=== PATIENT | male | born 1965 | race Caucasian/White ===

== ENCOUNTER 2020-07-11 08:47 | Outpatient (CLI) | payer BC, SELFPAY ==
--- NOTE | 2020-07-11 09:00 | XR_ITS ---
WS: [id number] XR KUB [id number] REASON FOR EXAM: stones FINDINGS: Compared to the previous examination of 10/04/2019, 3 additional 1 to 2 mm Renal calculi have developed adjacent to the previously demonstrated index calculus over the mid lowe r portion of the right kidney. No other urinary tract calculi are identified. XR/XR KUB [id number] IMPRESSION: Change in the right renal calculi as above.
== END 2020-07-11 08:48 | disposition home or self-care (01) ==
LOC: RAD 08:50
PROVIDERS: PCP Physician Assistant Medical; Visit Provider Urology
DX: N20.2 Calculus of kidney with calculus of ureter (principal)
CPT/HCPCS: 74018

== ENCOUNTER 2020-07-13 08:40 | Outpatient (CLI) | payer BC, SELFPAY ==
--- NOTE | 2020-07-13 08:45 | XR_ITS ---
WS: [id number] XR KUB [id number] REASON FOR EXAM: STONES FINDINGS: Examination is unchanged compared to abdomen exam of 07/11/2020. Collection of small renal calculi ov erlying the mid to lower right kidney. Maximum dimension of the largest calculus is 5 mm. On today's examination there are 2 left renal calculi which in retrospect are present but obscured by overlying fecal material in the colon on the exam of 07/11/2020. CT scan of the abdomen and pelvis on 06/07/2019 shows 2 calculi that correlate with the current findings. XR/XR KUB [id number] IMPRESSION: Right renal calculi unchanged. Left renal calculi unchanged.
== END 2020-07-13 08:41 | disposition home or self-care (01) ==
LOC: RAD 08:42
PROVIDERS: PCP Physician Assistant Medical; Visit Provider Urology
DX: N20.0 Calculus of kidney (principal)
CPT/HCPCS: 74018; 81001

== ENCOUNTER 2020-08-06 19:32 | Observation (INO) | payer BC, SELFPAY ==
[2020-08-06] VITALS (8 sets, daily range): BP systolic 168; BP diastolic 106; PULSE 98–105; RESP 14–30; TEMP 36.6; O2SAT 95–100; BMI 31.1
--- NOTE | 2020-08-06 20:32 | XRR_ITS ---
PROCEDURE INFORMATION: Exam: XR Abdomen, 1 View Exam date and time: 08/06/2020 8:56 PM Age: 54 years old Clinical indication: Condition or disease; Kidney or ureter condition; Calculus (stone) in kidney; Prior surgery; Surgery type: Splenectomy; Patient HX: Left flank pain, n/v; Additional info: Left kidney stone TECHNIQUE: Imaging protocol: XR of the abdomen. Views: Frontal supine view of the abdomen. 1 View. COMPARISON: MI XR KUB [id number] 07/13/2020 8:48 AM FINDINGS: A 0.5 cm density is seen at L2-L3 level on the left side in the line of the left ureter. A tiny density seen in the lower pole of the right kidney. Gastrointestinal tract: Normal. No bowel dilation. Bones/joints: Unremarkable. XR/XR KUB [id number] IMPRESSION: Probable left proximal ureteric stone. A nonobstructing stone is seen in the lower pole of the right kidney.
--- NOTE | 2020-08-06 20:33 | W.ED.GENADLT ---
Documented by User: MAGAN Hollins 08/07/20 01:58 HPI - General Adult General: Chief complaint: General Medical Stated complaint: FLANK/BACK PAIN Time Seen by Provider: 08/06/20 20:17 History of Present Illness: HPI narrative: 54-year-old male patient presents to the emergency department with sudden onset of left flank pain that started around 4 PM today. He reports history of kidney stone but on the right side. Previous stone experienced on the right side the beginning of July, urologist is Dr. Pza. He denies dysuria or difficulty with urination. He reports chills and diaphoresis with nausea vomiting. He denies shortness of breath or chest pain. He reports pain starts in the left flank and radiates around the left front abdomen. Location: abdomen (left) Radiation: abdomen and flank Severity: severe and similar to prior episodes Severity scale (1-10): 8 Quality: stabbing Pain Consistency: intermittent and colicky Relieving factors: none Exacerbating factors: none Associated symptoms: Reports diaphoresis, nausea and vomiting; Deny chest pain, dyspnea, headache(s), rash or palpitations Treatments prior to arrival: none Review of Systems General: Reports: 10 or more systems reviewed and unremarkable except in HPI and below Const: Reports: diaphoresis Eyes: Denies: blurry vision or eye redness ENMT: Denies: throat pain, dental pain or disequilibrium Card: Denies: chest pain, palpitations or irregular heart rhythm Resp: Denies: dyspnea, productive cough, non-productive cough or wheezing GI: Reports: abdominal pain, nausea and vomiting; Denies: coffee ground emesis, heartburn, diarrhea or GI cramping : Denies: dysuria Musc: Denies: neck pain or back pain Skin/Breast: Denies: rash or pruritus Neuro: Denies: headache(s), weakness in extremities or behavioral changes Psych: Denies: anxiety or depression Killian/Lymph: Denies: easy bruising PFSH ED PFSH: Medical History (Updated 08/06/20 @ 23:54 by MAGAN Hollins) Renal and ureteric calculus Surgical History H/O splenectomy Family History Father , at age 74 COPD (chronic obstructive pulmonary disease) Mother Diabetes Hyperlipidemia Social History Smoking and tobacco status: never smoked Alcohol intake: never Marital status: Current occupational status: employed History of recent travel: No Physical Exam Const: COMMON NORMALS: patient oriented x3, healthy appearing and alert GENERAL APPEARANCE: cooperative, well kempt, in distress (pain), anxious, diaphoretic, well hydrated and other (in pain, uncomfortable) ORIENTATION/CONSCIOUSNESS: Yes awake, Yes oriented to person, Yes oriented to place and Yes oriented to time HENMT: COMMON NORMALS: normocephalic, Normal external nose present and moist oral mucous membranes HEAD & SCALP: normocephalic NOSE: Normal external nose present Eye: COMMON NORMALS: Equal, round and reactive pupils present and EOMs intact bilaterally GENERAL EYE: appearance normal, both eyes and all related structures PUPIL: Yes Equal, round and reactive pupils present Neck/C-Spine: COMMON NORMALS: full ROM and no lymphadenopathy GENERAL: Yes normal visual inspection and Yes trachea midline CERVICAL SPINE: Yes cervical ROM normal Lymph: LYMPHATIC: no lymphadenopathy noted Chest: COMMONS NORMALS: normal inspection of the chest Resp: COMMON NORMALS: normal respiratory effort and clear to auscultation bilaterally AUSCULTATION: clear to auscultation bilaterally Cardio: COMMON NORMALS: regular rhythm, S1 normal heart sound present, S2 normal heart sound present and Peripheral pulses 2+ throughout RHYTHM: regular rhythm HEART SOUNDS: S1 normal heart sound present and S2 normal heart sound present PERIPHERAL PULSES: Peripheral pulses 2+ throughout GI: COMMON NORMALS: Normal to inspection, nondistended, normoactive bowel sounds present, Soft to palpation and non-tender INSPECTION: Yes normal to inspection and Yes central obesity PALPATION: Yes Soft to palpation : COMMON NORMALS: Yes no CVA tenderness BLADDER/KIDNEY EXAM: Yes no CVA tenderness Back/Pelvis: COMMON NORMALS: no CVA tenderness and thoracic and lumbar spine normal to inspection Extremity: COMMON NORMALS: normal to inspection and capillary refill normal Neuro: COMMON NORMALS: patient oriented x3 and no focal motor deficits SENSORIUM/ORIENTATION: Yes alert, Yes oriented to person, Yes oriented to place and Yes oriented to time Psych: COMMON NORMALS: mental status grossly normal, Normal thought process present and cooperative APPEARANCE: Yes well kempt ACTIVITY/MOTOR BEHAVIOR: Yes appropriate eye contact THOUGHT PROCESS: Normal thought process present Skin: COMMON NORMALS: no rashes or lesions noted and turgor normal GENERAL SKIN EXAM: no rashes or lesions noted and turgor normal Course ED course: 54 year old male presents to the ED with left 5 mm calculus in the proximal left ureter, mild-moderate hydronephrosis with associated inflammatory stranding. Patient received 12 mg of morphine and 1.5 mg of Dilaudid for pain control. Supplemental oxygen applied due to hypoxia, O2 saturations 87% on room air. Pain was controlled, urinalysis with too numerous to count red blood cells and 20-[address] Paz contacted agrees to admit for inpatient services due to pain control. Patient has previous history of renal calculus with lithotripsy procedure. Vital Signs: Vital signs: Vital Signs Temperature 97.6 F 08/07/20 00:34 Pulse Rate 114 H 08/07/20 00:34 Respiratory Rate 22 H 08/07/20 01:27 Blood Pressure 161/97 08/07/20 00:34 Pulse Oximetry 94 08/07/20 00:34 [facility] - General Adult Lab Data: Labs: Lab Results 08/06/20 08/06/20 08/06/20 Range/Units 21:00 21:00 21:00 WBC 17.9 H (4.0-10.0) 10^3/ uL RBC 5.38 H (4.1-5.3) 10^6/u L Hgb 15.6 (11.7-16.6) g/dL Hct 47.1 (42.0-52.0) % MCV 87.5 (80-94) fL MCH 29.0 (28.0-34.0) pg MCHC 33.1 (30.0-36.0) g/dL RDW 14.9 (12.1-15.1) % Plt Count 467 H (130-400) 10^3/c mm MPV 9.6 (7.4-10.4) fL Neut % (Auto) 83.9 % Lymph % (Auto) 11.6 % Mathews % (Auto) 3.4 % Eos % (Auto) 0.0 % Baso % (Auto) 0.6 % Neut # (Auto) 15.06 H (1.8-7.7) 10^3/u L Lymph # (Auto) 2.1 (0.8-4.8) 10^3/u L Mathews # (Auto) 0.6 (0.2-0.9) 10^3/u L Eos # (Auto) 0.0 (0.0-0.8) 10^3/u L Baso # (Auto) 0.1 (0.0-0.1) 10^3/u L Nucleated RBC % (a uto) 0 % Nucleated RBCs # 0.0 /100WBC D-Dimer 0.29 (0-0.59) ug/mIFE U Sodium 142 (136-145) mmol/L Potassium 3.8 (3.5-5.1) mmol/L Chloride 103 (98-107) mmol/L Carbon Dioxide 21 L (22-29) mmol/L Anion Gap 21.8 H (5-19) BUN 22 H (6-20) mg/dL Creatinine 1.1 (0.7-1.2) mg/dL GFR Calculation 70.3 L (90-130) mL/min Glucose 191 H (65-115) mg/dL Calculated Osmolal ity 302 H (285-295) mOsm/k g Calcium 10.2 (8.5-10.5) mg/dL Total Bilirubin 0.6 (0.15-1.2) mg/dL AST 23 (0-40) U/L ALT 27 (0-41) U/L Alkaline Phosphata se 80 (40-130) IU/L Total Protein 8.0 (6.6-8.7) g/dL Albumin 4.7 (3.5-5.2) g/dL Globulin 3.3 (1.3-4.6) g/dL Urine Color (Yellow) Urine Appearance (CLEAR) Urine pH (5-7) Ur Specific Gravit y (1.005-1.030) Urine Protein (Negative) Urine Glucose (UA) (Normal) Urine Ketones (Negative) Urine Blood (Negative) Urine Nitrate (Negative) Urine Bilirubin (Negative) Urine Urobilinogen (Negative) mg/dL Ur Leukocyte Akosua ase (Negative) Urine RBC (0-2) /hpf Urine WBC (0-5) /hpf Ur Squamous Epith Cells (0-5) /hpf Amorphous Sediment Urine Bacteria (NONE) /hpf 08/06/20 Range/Units 22:20 WBC (4.0-10.0) 10^3/ uL RBC (4.1-5.3) 10^6/u L Hgb (11.7-16.6) g/dL Hct (42.0-52.0) % MCV (80-94) fL MCH (28.0-34.0) pg MCHC (30.0-36.0) g/dL RDW (12.1-15.1) % Plt Count (130-400) 10^3/c mm MPV (7.4-10.4) fL Neut % (Auto) % Lymph % (Auto) % Mathews % (Auto) % Eos % (Auto) % Baso % (Auto) % Neut # (Auto) (1.8-7.7) 10^3/u L Lymph # (Auto) (0.8-4.8) 10^3/u L Mathews # (Auto) (0.2-0.9) 10^3/u L Eos # (Auto) (0.0-0.8) 10^3/u L Baso # (Auto) (0.0-0.1) 10^3/u L Nucleated RBC % (a uto) % Nucleated RBCs # /100WBC D-Dimer (0-0.59) ug/mIFE U Sodium (136-145) mmol/L Potassium (3.5-5.1) mmol/L Chloride (98-107) mmol/L Carbon Dioxide (22-29) mmol/L Anion Gap (5-19) BUN (6-20) mg/dL Creatinine (0.7-1.2) mg/dL GFR Calculation (90-130) mL/min Glucose (65-115) mg/dL Calculated Osmolal ity (285-295) mOsm/k g Calcium (8.5-10.5) mg/dL Total Bilirubin (0.15-1.2) mg/dL AST (0-40) U/L ALT (0-41) U/L Alkaline Phosphata se (40-130) IU/L Total Protein (6.6-8.7) g/dL Albumin (3.5-5.2) g/dL Globulin (1.3-4.6) g/dL Urine Color Rosario (Yellow) Urine Appearance Sl cloudy A (CLEAR) Urine pH 5 (5-7) Ur Specific Gravit y 1.025 (1.005-1.030) Urine Protein 1+ H (Negative) Urine Glucose (UA) 1+ (Normal) Urine Ketones 2+ H (Negative) Urine Blood 3+ H (Negative) Urine Nitrate Negative (Negative) Urine Bilirubin Neg (Negative) Urine Urobilinogen Norm (Negative) mg/dL Ur Leukocyte Akosua ase Trace H (Negative) Urine RBC Too numerous to c nt H (0-2) /hpf Urine WBC 25-40 H (0-5) /hpf Ur Squamous Epith Cells 0-4 H (0-5) /hpf Amorphous Sediment Not Reportable Urine Bacteria 2+ H (NONE) /hpf Imaging Data^: CT Abd/Pel: Radiologist's impression: [place] [address] CT Scan Report Signed Patient: Sylvester El Unit #: [id number] : 1965 Age/Sex: 54 / M ADM Date: 08/06/20 Loc: ER Room/Bed: Attending Dr: Ordering Provider/Ordering MD: Gretchen Siddiqui Date of Service: 08/06/20 Procedure(s): CT kidney stone 22786 Accession Number(s): [id number] Report Number: [id number] PROCEDURE INFORMATION: Exam: CT Abdomen And Pelvis Without Contrast Exam date and time: 08/06/2020 8:57 PM Age: 54 years old Clinical indication: Abdominal pain; Left; Prior surgery; Surgery date: 6+ months; Surgery type: Spleen; Patient HX: New onset L flank pain w HX of stones; Additional info: Kidney stone TECHNIQUE: Imaging protocol: Computed tomography of the abdomen and pelvis without contrast. Radiation optimization: All CT scans at this facility use at least one of these dose optimization techniques: automated exposure control; mA and/or kV adjustment per patient size (includes targeted exams where dose is matched to clinical indication); or iterative reconstruction. COMPARISON: CT abdomen pelvis w con* [id number] 06/07/2019 3:46 AM RADIATION DOSE METRICS: Total DLP (mGy-cm): 1567.52 FINDINGS: Mediastinal space: Small hiatal hernia. Liver: Normal. No mass. Gallbladder and bile ducts: Normal. No calcified stones. No ductal dilation. Pancreas: Normal. No ductal dilation. Spleen: Status post splenectomy. Small residual splenules are present in the left upper quadrant. Adrenal glands: Normal. No mass. Kidneys and ureters: There are bilateral nonobstructing renal calculi. There is a 5 mm x 5 mm calculus in the proximal left ureter.Mild to moderate hydronephrosis/hydroureter and associated inflammatory stranding. Stomach and bowel: Unremarkable. No obstruction. No mucosal thickening. Appendix: Appendix is normal in thickness with no periappendiceal inflammatory changes seen. A tiny hyperdensity is present in the appendix. Intraperitoneal space: Unremarkable. No free air. No significant fluid collection. Vasculature: Unremarkable. No abdominal aortic aneurysm. Lymph nodes: Unremarkable. No enlarged lymph nodes. Urinary bladder: Unremarkable as visualized. Reproductive: Unremarkable as visualized. Bones/joints: Unremarkable. No acute fracture. Soft tissues: Unremarkable. CT/CT kidney stone [id number] IMPRESSION: There is a 5 mm calculus in the proximal left ureter with obstructive changes as described above. Discharge Plan Discharge Patient Disposition: Admitted As Inpatient Admit Provider: Alfredo Paz Clinical Impression: Renal and ureteric calculus Condition: Stable Referrals: Mati Bradley [Primary Care Provider] - Discharge Date/Time: 08/07/20 00:30 Coding Level of Care Code ED Dolly Pusher for Chg Fwd Exam Comprehensive Documented by User: León Recinos DO 08/07/20 00:38 HPI - General Adult General: Chief complaint: General Medical Stated complaint: FLANK/BACK PAIN Time Seen by Provider: 08/06/20 20:17 PFSH ED PFSH: Medical History (Updated 08/06/20 @ 23:54 by MAGAN Hollins) Renal and ureteric calculus Surgical History H/O splenectomy Family History Father , at age 74 COPD (chronic obstructive pulmonary disease) Mother Diabetes Hyperlipidemia Social History Smoking and tobacco status: never smoked Alcohol intake: never Marital status: Current occupational status: employed History of recent travel: No Course Vital Signs: Vital signs: Vital Signs Temperature 97.6 F 08/07/20 00:34 Pulse Rate 114 H 08/07/20 00:34 Respiratory Rate 22 H 08/07/20 01:27 Blood Pressure 161/97 08/07/20 00:34 Pulse Oximetry 94 08/07/20 00:34 MDM - General Adult MDM Narrative: Medical decision making narrative: 54-year-old male patient seen by KAYE Oshea. I agree with her history, evaluation, and management. This patient has intractable pain due to 5 mm left-sided ureterolithiasis with obstruction. I spoke with Dr. Paz. Patient will be observed. He was given 1 g of Rocephin in the ER for potential infection, although urinalysis may be somewhat contaminated. Lab Data: Labs: Lab Results 08/06/20 08/06/20 08/06/20 Range/Units 21:00 21:00 21:00 WBC 17.9 H (4.0-10.0) 10^3/ uL RBC 5.38 H (4.1-5.3) 10^6/u L Hgb 15.6 (11.7-16.6) g/dL Hct 47.1 (42.0-52.0) % MCV 87.5 (80-94) fL MCH 29.0 (28.0-34.0) pg MCHC 33.1 (30.0-36.0) g/dL RDW 14.9 (12.1-15.1) % Plt Count 467 H (130-400) 10^3/c mm MPV 9.6 (7.4-10.4) fL Neut % (Auto) 83.9 % Lymph % (Auto) 11.6 % Mathews % (Auto) 3.4 % Eos % (Auto) 0.0 % Baso % (Auto) 0.6 % Neut # (Auto) 15.06 H (1.8-7.7) 10^3/u L Lymph # (Auto) 2.1 (0.8-4.8) 10^3/u L Mathews # (Auto) 0.6 (0.2-0.9) 10^3/u L Eos # (Auto) 0.0 (0.0-0.8) 10^3/u L Baso # (Auto) 0.1 (0.0-0.1) 10^3/u L Nucleated RBC % (a uto) 0 % Nucleated RBCs # 0.0 /100WBC D-Dimer 0.29 (0-0.59) ug/mIFE U Sodium 142 (136-145) mmol/L Potassium 3.8 (3.5-5.1) mmol/L Chloride 103 (98-107) mmol/L Carbon Dioxide 21 L (22-29) mmol/L Anion Gap 21.8 H (5-19) BUN 22 H (6-20) mg/dL Creatinine 1.1 (0.7-1.2) mg/dL GFR Calculation 70.3 L (90-130) mL/min Glucose 191 H (65-115) mg/dL Calculated Osmolal ity 302 H (285-295) mOsm/k g Calcium 10.2 (8.5-10.5) mg/dL Total Bilirubin 0.6 (0.15-1.2) mg/dL AST 23 (0-40) U/L ALT 27 (0-41) U/L Alkaline Phosphata se 80 (40-130) IU/L Total Protein 8.0 (6.6-8.7) g/dL Albumin 4.7 (3.5-5.2) g/dL Globulin 3.3 (1.3-4.6) g/dL Urine Color (Yellow) Urine Appearance (CLEAR) Urine pH (5-7) Ur Specific Gravit y (1.005-1.030) Urine Protein (Negative) Urine Glucose (UA) (Normal) Urine Ketones (Negative) Urine Blood (Negative) Urine Nitrate (Negative) Urine Bilirubin (Negative) Urine Urobilinogen (Negative) mg/dL Ur Leukocyte Akosua ase (Negative) Urine RBC (0-2) /hpf Urine WBC (0-5) /hpf Ur Squamous Epith Cells (0-5) /hpf Amorphous Sediment Urine Bacteria (NONE) /hpf 08/06/20 Range/Units 22:20 WBC (4.0-10.0) 10^3/ uL RBC (4.1-5.3) 10^6/u L Hgb (11.7-16.6) g/dL Hct (42.0-52.0) % MCV (80-94) fL MCH (28.0-34.0) pg MCHC (30.0-36.0) g/dL RDW (12.1-15.1) % Plt Count (130-400) 10^3/c mm MPV (7.4-10.4) fL Neut % (Auto) % Lymph % (Auto) % Mathews % (Auto) % Eos % (Auto) % Baso % (Auto) % Neut # (Auto) (1.8-7.7) 10^3/u L Lymph # (Auto) (0.8-4.8) 10^3/u L Mathews # (Auto) (0.2-0.9) 10^3/u L Eos # (Auto) (0.0-0.8) 10^3/u L Baso # (Auto) (0.0-0.1) 10^3/u L Nucleated RBC % (a uto) % Nucleated RBCs # /100WBC D-Dimer (0-0.59) ug/mIFE U Sodium (136-145) mmol/L Potassium (3.5-5.1) mmol/L Chloride (98-107) mmol/L Carbon Dioxide (22-29) mmol/L Anion Gap (5-19) BUN (6-20) mg/dL Creatinine (0.7-1.2) mg/dL GFR Calculation (90-130) mL/min Glucose (65-115) mg/dL Calculated Osmolal ity (285-295) mOsm/k g Calcium (8.5-10.5) mg/dL Total Bilirubin (0.15-1.2) mg/dL AST (0-40) U/L ALT (0-41) U/L Alkaline Phosphata se (40-130) IU/L Total Protein (6.6-8.7) g/dL Albumin (3.5-5.2) g/dL Globulin (1.3-4.6) g/dL Urine Color Rosario (Yellow) Urine Appearance Sl cloudy A (CLEAR) Urine pH 5 (5-7) Ur Specific Gravit y 1.025 (1.005-1.030) Urine Protein 1+ H (Negative) Urine Glucose (UA) 1+ (Normal) Urine Ketones 2+ H (Negative) Urine Blood 3+ H (Negative) Urine Nitrate Negative (Negative) Urine Bilirubin Neg (Negative) Urine Urobilinogen Norm (Negative) mg/dL Ur Leukocyte Akosua ase Trace H (Negative) Urine RBC Too numerous to c nt H (0-2) /hpf Urine WBC 25-40 H (0-5) /hpf Ur Squamous Epith Cells 0-4 H (0-5) /hpf Amorphous Sediment Not Reportable Urine Bacteria 2+ H (NONE) /hpf Discharge Plan Discharge Patient Disposition: Admitted As Inpatient Admit Provider: Alfredo Paz Clinical Impression: Renal and ureteric calculus Condition: Stable Referrals: Mati Bradley [Primary Care Provider] - Discharge Date/Time: 08/07/20 00:30 Coding Level of Care Code ED Dolly Pusher for Chg Fwd Exam Comprehensive
[2020-08-06] MEDS: ondansetron 2 mg/ML SDV 2 mL 4 MG IVP (20:53)
[2020-08-06] MEDS: morphine 4 mg/mL SDV 1 mL IVP ×3 (20:53→22:23)
[2020-08-06] MEDS: sodium chloride 0.9% 500 ML 999 ML IV (20:57)
[2020-08-06 21:13] LABS: Basophils # 0.1 10^3/uL (0.0-0.1); Basophils % 0.6 %; Hematocrit 47.1 % (42.0-52.0); Hemoglobin 15.6 g/dL (11.7-16.6); Lymphocytes # 2.1 10^3/uL (0.8-4.8); Lymphocytes % 11.6 %; Mean Corpuscular HGB Conc 33.1 g/dL (30.0-36.0); Mean Corpuscular Volume 87.5 fL (80-94); Mean Platelet Volume 9.6 fL (7.4-10.4); Monocytes # 0.6 10^3/uL (0.2-0.9); Monocytes % 3.4 %; Neutrophils # 15.06 10^3/uL (1.8-7.7); Neutrophils % 83.9 %; Nucleated Red Blood Cells % 0 %; Platelet Count 467 10^3/cmm (130-400); Red Blood Count 5.38 10^6/uL (4.1-5.3); Red Cell Distribution Width 14.9 % (12.1-15.1); White Blood Count 17.9 10^3/uL (4.0-10.0)
[2020-08-06] MEDS: HYDROmorphone 1 mg/mL INJ 1 mL IVP (21:29)
[2020-08-06 21:35] LABS: Alanine Aminotransferase 27 U/L (0-41); Albumin Level 4.7 g/dL (3.5-5.2); Alkaline Phosphatase 80 IU/L (40-130); Anion Gap 21.8 (5-19); Aspartate Amino Transferase 23 U/L (0-40); Blood Urea Nitrogen 22 mg/dL (6-20); Calcium 10.2 mg/dL (8.5-10.5); Carbon Dioxide 21 mmol/L (22-29); Chloride 103 mmol/L (98-107); Globulin 3.3 g/dL (1.3-4.6); Glomerular Filtration Rate 70.3 mL/min (90-130); Glucose 191 mg/dL (65-115); Osmolality Calculated 302 mOsm/kg (285-295); Potassium 3.8 mmol/L (3.5-5.1); Sodium 142 mmol/L (136-145); Total Bilirubin 0.6 mg/dL (0.15-1.2)
[2020-08-06 21:42] LABS: D Dimer 0.29 ug/mIFEU (0-0.59)
[2020-08-06 22:42] LABS: Add Urine Microscopic? YES; Bilirubin Urine Neg (Negative); Blood Urine 3+ (Negative); Glucose Urine UA 1+ (Normal); Ketones Urine 2+ (Negative); Leukocyte Esterase Urine Trace (Negative); Nitrate Urine Negative (Negative); Protein Urine 1+ (Negative); Specific Gravity, Urine 1.025 (1.005-1.030); Urine Color Amber (Yellow); Urobilinogen Urine Norm (Negative); pH Urine 5 (5-7)
[2020-08-06] MEDS: HYDROmorphone 1 mg/mL INJ 1 mL 0.5 MG IVP (22:42)
[2020-08-06 22:51] LABS: RBC Urine TOO NUMEROUS TO CNT /hpf (0-2); Squamous Epithelial Cell Urine 0-4 /hpf (0-5); WBC Urine 25-40 /hpf (0-5)
[2020-08-06 22:52] LABS: Add Urine Culture? Yes; Bacteria Urine 2+ /hpf
[2020-08-06] MEDS: cefTRIAXone 1,000 MG in sodium chloride 0.9% (plus) 50 ML 100 MG IV (23:07)
[2020-08-07] VITALS (18 sets, daily range): BP systolic 134–163; BP diastolic 81–100; PULSE 81–114; RESP 14–22; TEMP 36.3–37.1; O2SAT 91–98
[2020-08-07] MEDS: HYDROmorphone 1 mg/mL INJ 1 mL IVP ×3 (01:27→08:01)
[2020-08-07] MEDS: lactated ringers 1,000 ML 125 ML IV ×2 (01:43→08:00)
[2020-08-07] MEDS: ondansetron 2 mg/ML SDV 2 mL 4 MG IVP (04:00)
--- NOTE | 2020-08-07 04:44 | PC.NURSE ---
Shift Summary Pt has had emesis x 1, seemed to subside after pain meds given. Has required 2 doses of Dilaudid & 1 dose of Zofran. 350 ml dark tea colored urine, strained with no visible stones. No other issues.
--- NOTE | 2020-08-07 07:16 | PM.HP ---
Providers/Chief Complaint Admitting Physician: Alfredo Paz MD Primary Care Provider: Mati Bradley Chief Complaint: KIDNEY STONES, N/V History of Present Illness Sylvester El is a 54 year old male with a history of urolithiasis who was last seen in the office on 07/13/2020 in routine follow-up of urolithiasis. He was known to have bilateral renal calculi but was asymptomatic at that time. He had passed some small particulate matter and his symptoms resolved. Was placed on continued surveillance. His last treatment for stones was in June 2019 including laser lithotripsy. Presented to the emergency department last night with severe refractory pain cannot be adequately controlled with parenteral narcotics and he was admitted for further treatment and evaluation of a 5 mm obstructing left proximal ureteral stone identified on CT scan and visualized on KUB. This morning he still having severe pain. Ultimately he elected to proceed with intervention. We will plan for ESWL if the machine can be available but otherwise endoscopic approach or just stent placement if the stone is not accessible. He has no Covid symptoms but has been tested. That test will be pending at time of surgery and therefore's Covid precautions will be taken. Informed consent was obtained after detailed explanation of current findings as well as options. No contraindications to surgery. Denies any significant other comorbidities affecting this decisionW Review of Systems General: Reports: 10 or more systems reviewed and unremarkable except in HPI and below Const: Reports: diaphoresis; Denies: fever(s), chills or night sweats Eyes: Denies: change in vision, blurry vision or eye redness ENMT: Denies: throat pain, dental pain or disequilibrium Card: Denies: chest pain, palpitations or irregular heart rhythm Resp: Denies: dyspnea, productive cough, non-productive cough or wheezing GI: Reports: abdominal pain, nausea and vomiting; Denies: coffee ground emesis, heartburn, diarrhea or GI cramping : Reports: flank pain; Denies: dysuria Musc: Denies: neck pain or back pain Skin/Breast: Denies: rash or pruritus Neuro: Denies: headache(s), weakness in extremities or behavioral changes Psych: Denies: anxiety or depression Endo: Denies: hot flashes Killian/Lymph: Denies: easy bruising All/Imm: Denies: urticaria Medications/Allergies Home Medications Medication Instructions Recorded Confirmed Last Taken Type hydrocodone-acetaminophen 1 tab PO Q6H PRN 08/07/20 08/07/20 1 Day Ago History ~08/06/20 tamsulosin 0.4 mg PO DAILY 08/07/20 08/07/20 1 Day Ago History ~08/06/20 Allergies Allergy/AdvReac Type Severity Reaction Status Date / Time No Known Allergies Allergy Unverified 07/11/20 09:25 PFSH Acute PFSH: Medical History (Updated 08/06/20 @ 23:54 by MAGAN Hollins) Renal and ureteric calculus Surgical History H/O splenectomy Family History Father , at age 74 COPD (chronic obstructive pulmonary disease) Mother Diabetes Hyperlipidemia Social History Smoking and tobacco status: never smoked Alcohol intake: never Marital status: Current occupational status: employed History of recent travel: No Vitals/I&O/Wt Last Vital Signs Temp 98.1 F 08/07/20 03:49 Pulse 114 H 08/07/20 03:49 Resp 20 H 08/07/20 03:59 BP 150/88 08/07/20 03:49 Pulse Ox 93 08/07/20 03:49 08/06/20 08/07/20 08/07/20 22:59 06:59 14:59 Intake Total 550 / 550 Output Total 500 / 500 Balance 50 / 50 Weight last 48 hrs Weight 205 lb Physical Exam Const: COMMON NORMALS: alert and well nourished GENERAL APPEARANCE: well kempt and well developed ORIENTATION/CONSCIOUSNESS: not confused HENMT: HEAD & SCALP: normocephalic and atraumatic Eye: COMMON NORMALS: conjunctivae normal and no scleral icterus Neck/C-Spine: COMMON NORMALS: full ROM GENERAL: Yes normal visual inspection Resp: COMMON NORMALS: normal respiratory effort EFFORT & INSPECTION: No labored and No Actively coughing Cardio: COMMON NORMALS: regular rate and regular rhythm GI: PALPATION: Yes Tenderness to palpation present (GI) : BLADDER/KIDNEY EXAM: Yes CVA tenderness on the left Neuro: COMMON NORMALS: no focal motor deficits SENSORIUM/ORIENTATION: Yes alert Psych: COMMON NORMALS: mental status grossly normal APPEARANCE: Yes grossly normal and Yes well kempt ATTITUDE: Yes calm and Yes engaged Skin: COMMON NORMALS: no rashes or lesions noted and no jaundice Data : 08/06/20 21:00 08/06/20 21:00 A&P Assessment and plan (1) Renal and ureteric calculus: 5 mm left proximal ureteral stone with obstruction and severe symptomatology in the absence of infection. Plan for ESWL and stent placement later today or possible ureteroscopy if ESWL not available. Status: Acute (2) Renal colic on left side: Related to 5 mm left proximal ureteral stone. Severe and poorly controlled. Status: Acute Attestations Medical Necessity Statement*: Could not manage this patient adequately in the emergency department therefore required hospitalization. Was not a candidate for outpatient management Coding Level of Care Code Acute Supervisor Twisting Department for Cezar Arteaga Diagnoses Renal and ureteric calculus N20.2 Renal colic on left side N23
--- NOTE | 2020-08-07 12:00 | ANES.PREANE2 ---
Pre-Anesthetic Assessment Pre-Anesthetic Assessment: Height/Weight: Height 1.73 m Weight 92.986 kg Temp Pulse Resp BP Pulse Ox 98.7 F 109 H 18 143/89 96 08/07/20 11:40 08/07/20 11:40 08/07/20 11:40 08/07/20 11:40 08/07/20 11:40 Preop Diagnosis: Kidney stones Proposed Procedure: Operation Date: 08/07/20 13:15 Proposed Procedures p Cystoscopy(Not Applicable) - Alfredo Paz MD s Ureteroscopy(Left) - Alfredo Paz MD s Laser Lithotripsy(Left) - Alfredo Paz MD s ESWL(Left) - Alfredo Paz MD Familial anesthetic complications: None Was Beta Jania taken within 24 hours: N/A Last intake: Intake Last Liquid Date 08/07/20 Last Liquid Time 06:00 Last Solid Date 08/06/20 Last Solid Time 14:00 Social: Social History: No alcohol and No tobacco Exam: Pre-Anes Outpt Exam: alert, oriented x 3, clear to auscultation bilaterally and regular rate & rhythm Airway: Cervical ROM: WNL MP: 1 Dentition: Full GI: GI: GERD Anesthetic Plan: ASA status: 1 Anesthesia: General Risk of > 500 ml blood loss (7ml/kg in children): No Meds/Allergies Current Medications: Current Medications Generic Name Dose Route Start Last Admin Trade Name Freq PRN Reason Stop Dose Admin Hydromorphone HCl 1 mg 08/07/20 00:34 08/07/20 08:01 Dilaudid Inj IVP 1 mg Q2H PRN Administration pain Lactated Ringer's 1,000 mls @ 125 m ls/hr 08/07/20 00:34 08/07/20 08:00 Lactated Ringers IV 125 mls/hr .Q8H CASANDRA Administration Ondansetron HCl 4 mg 08/07/20 00:34 08/07/20 04:00 Zofran IVP 4 mg Q6H PRN Administration NAUSEA AND VOMITI NG PFSH Anesthesia PFSH: Medical History (Updated 08/06/20 @ 23:54 by MAGAN Hollins) Renal and ureteric calculus Surgical History H/O splenectomy Family History Father , at age 74 COPD (chronic obstructive pulmonary disease) Mother Diabetes Hyperlipidemia Social History Smoking and tobacco status: never smoked Alcohol intake: never Marital status: Current occupational status: employed History of recent travel: No Data Anesthesia CBC & Chem 7: 08/06/20 21:00 08/06/20 21:00 Other Labs: Laboratory Results - last 48 hr 08/06/20 08/06/20 08/06/20 21:00 21:00 21:00 WBC 17.9 H RBC 5.38 H Hgb 15.6 Hct 47.1 MCV 87.5 MCH 29.0 MCHC 33.1 RDW 14.9 Plt Count 467 H MPV 9.6 Neut % (Auto) 83.9 Lymph % (Auto) 11.6 [place] % (Auto) 3.4 Eos % (Auto) 0.0 Baso % (Auto) 0.6 Neut # (Auto) 15.06 H Lymph # (Auto) 2.1 [place] # (Auto) 0.6 Eos # (Auto) 0.0 Baso # (Auto) 0.1 Nucleated RBC % (auto) 0 Nucleated RBCs # 0.0 D-Dimer 0.29 Sodium 142 Potassium 3.8 Chloride 103 Carbon Dioxide 21 L Anion Gap 21.8 H BUN 22 H Creatinine 1.1 GFR Calculation 70.3 L Glucose 191 H Calculated Osmolality 302 H Calcium 10.2 Total Bilirubin 0.6 AST 23 ALT 27 Alkaline Phosphatase 80 Total Protein 8.0 Albumin 4.7 Globulin 3.3 Urine Color Urine Appearance Urine pH Ur Specific [place] Urine Protein Urine Glucose (UA) Urine Ketones Urine Blood Urine Nitrate Urine Bilirubin Urine Urobilinogen Ur Leukocyte Esterase Urine RBC Urine WBC Ur Squamous Epith Cells Amorphous Sediment Urine Bacteria 08/06/20 22:20 WBC RBC Hgb Hct MCV MCH MCHC RDW Plt Count MPV Neut % (Auto) Lymph % (Auto) [place] % (Auto) Eos % (Auto) Baso % (Auto) Neut # (Auto) Lymph # (Auto) [place] # (Auto) Eos # (Auto) Baso # (Auto) Nucleated RBC % (auto) Nucleated RBCs # D-Dimer Sodium Potassium Chloride Carbon Dioxide Anion Gap BUN Creatinine GFR Calculation Glucose Calculated Osmolality Calcium Total Bilirubin AST ALT Alkaline Phosphatase Total Protein Albumin Globulin Urine Color [place] Urine Appearance Sl cloudy A Urine pH 5 Ur Specific [place] 1.025 Urine Protein 1+ H Urine Glucose (UA) 1+ Urine Ketones 2+ H Urine Blood 3+ H Urine Nitrate Negative Urine Bilirubin Neg Urine Urobilinogen Norm Ur Leukocyte Esterase Trace H Urine RBC Too numerous to cnt H Urine WBC 25-40 H Ur Squamous Epith Cells 0-4 H Amorphous Sediment Not Reportable Urine Bacteria 2+ H Cardiac Studies: No Data to Display
--- NOTE | 2020-08-07 13:32 | SUR.PHASEI ---
1329 PATIENT TO PACU FROM OR. RR EVEN AND UNLABORED. NO DISTRESS.
--- NOTE | 2020-08-07 13:40 | ANE.PACU2 ---
Inpatient post-anesthesia follow up: Airway intact: Yes Vital signs: Temperature 97.4 F Pulse Rate [Left] 98 Pulse Rate 89 Respiratory Rate 18 Blood Pressure [Le ft Arm] 168/106 Blood Pressure 149/89 Pulse Oximetry 94 Oxygen Delivery Me thod Room Air Oxygen Flow Rate 8 Fraction of Inspir ed Oxygen Hydration adequate: Yes Nausea and vomiting: No Pain level: 1 Mental status: Baseline
--- NOTE | 2020-08-07 13:47 | PM.OP ---
Operative Report Date of procedure: August 07, 2020 Pre-op Diagnosis: Left UPJ obstructing stone with refractory symptoms Post-op diagnosis: same Procedure Done: 1. Cystoscopy with left ureteral stent placement 2. Extracorporeal shockwave lithotripsy to left ureteral calculus Implants: 6 Turkish by 26 cm double-pigtail stent without string Pathology: none sent Surgeon: [facility] Navigator: Lithotripsy Machine Tool Rebuilder: Epifanio Skinner Anesthesia: General Estimated blood loss: Not measured Urine output: Not measured Complications: None Findings: 1. Stone easily identified with biplanar fluoroscopy 2. 2500 shocks administered to the stone with excellent change 3. Stent left indwelling at the completion of the procedure Condition: stable Disposition: PACU Brief History: Sylvester is a very pleasant 54-year-old white male well-known to me for history of recurrent urolithiasis who presented to the emergency department last night with absolutely terrible left flank pain typical for his previous renal colic. CT scan confirmed a 5 mm obstructing stone at the left UPJ. Initially was treated aggressively with parenteral narcotics but could not adequately control the pain to make it safe for him to go home and for that reason he was admitted to observation status. This morning a decision was made to proceed with cystoscopy stent placement and ESWL. No contraindications to surgery. No blood thinners etc. Covid precautions were maintained due to no current testing. Procedure: After urgent evaluation examination and obtaining of informed consent he was taken to the operating suite on 08/07/2020 where general anesthesia was administered without difficulty after appropriate timeout was performed, SCDs confirmed to be functioning, preoperative antibiotics administered, beta-sharon protocol confirmed. Positioned in supine position on the Dornier unit such that the stone was located at the focal point utilizing biplanar fluoroscopy with a shock head positioned anteriorly. The stone was readily identifiable. Shockwave was initiated at a rate of 70 and an intensity of 1 with advancement to 4. A several minute pause was conducted after about 300 shocks were administered. At about 800 shocks the stone showed change in the focus was maintained with movement up and down the stone column that was forming. At the completion of the procedure with the full complement of shocks of 2500 the stone was apparently well fragmented with no large fragments easily identifiable. Because of the degree of obstructive symptoms that he was having preoperatively it was decided to place a stent to ensure no recurrent obstruction from the stone fragments. He was then repositioned in dorsal lithotomy position paying careful attention to avoiding pressure points. 21 Turkish cystoscope with 30 degree lens was introduced into the urethral meatus and advanced into the bladder under videoscopy. There were a few tiny small fragments of' stones in the bladder. A flexible tip guidewire was then easily advanced up the left ureter bypassing the treatment area curling in the upper pole calyx and then a 6 Turkish by 26 cm double-pigtail stent was advanced over the guidewire through the cystoscope into appropriate position as confirmed via fluoroscopy and cystoscopy. The bladder was drained and the procedure completed. He tolerated the procedure well without complications and was awakened in the operating room and returned to the care of room in stable condition. PLANS: 1. Discharge from second floor this evening if he recovers well and his pain is well controlled 2. Prescription for Percocet will be provided to the patient 3. Follow-up next week in my office with a KUB first and likely cystoscopy with stent removal.
--- NOTE | 2020-08-07 13:53 | P.DS_ITS ---
Discharge Providers Date of Admission: 08/07/20 00:31 Date of Discharge: August 07, 2020 Attending Provider at Admission: Alfredo Paz MD Attending Provider at Discharge: Alfredo Paz MD Primary Care Provider: Mati Bradley Diagnoses at Discharge Discharge Diagnosis (1) Renal and ureteric calculus: Status: Acute Permanent problem details: 5 mm left UPJ stone with high-grade obstruction and severe symptomatology. Admitted due to poor pain control 08/07/2020. ESWL with stent placement with excellent fragmentation. (2) Renal colic on left side: Status: Acute Reason for Visit Reason for Visit: KIDNEY STONES, N/V Hospital Course Discharge Summary: He presented with severe left renal colic secondary to a 5 mm stone identified on CT scan in the absence of infection. Could not control his pain adequately to be able to send home. On the morning after his admission he was still having significant pain and elected to proceed with intervention and ESWL with stent placement was planned. On the afternoon of 08/07/2020 he underwent cystoscopy, left ureteral stent placement, ESWL to left proximal ureteral stone with excellent change. After appropriate recovery he was discharged in the evening of 08/07/2020 with plans for follow-up in approximately a week for KUB first and likely cystoscopy with stent removal. Discharge in stable condition to his home in the care of his family Physical Exam Const: COMMON NORMALS: no acute distress and alert GENERAL APPEARANCE: well kempt and well developed ORIENTATION/CONSCIOUSNESS: not confused Resp: COMMON NORMALS: normal respiratory effort EFFORT & INSPECTION: No labored and No Actively coughing Neuro: SENSORIUM/ORIENTATION: Yes alert Psych: COMMON NORMALS: mental status grossly normal, Normal thought process present and cooperative APPEARANCE: Yes grossly normal and Yes well kempt ATTITUDE: Yes calm and Yes engaged THOUGHT PROCESS: Normal thought process present Skin: COMMON NORMALS: no rashes or lesions noted and no jaundice GENERAL SKIN EXAM: no rashes or lesions noted Discharge Data Data Completed and Pending: Completed Studies During Hospitalization Category Date Time Status CT kidney stone 7 [id number] Urgent Cat Scan 08/06/20 20:32 Completed XR KUB [id number] Urge nt Exams 08/06/20 20:32 Completed Pending at discharge Category Date Time Status Coronavirus Lab T est PTC Routine Lab 08/06/20 23:55 Received Urine Culture Sta t Lab 08/06/20 22:20 Received Labs from last 24 hours 08/06/20 08/06/20 08/06/20 23:55 22:20 21:00 WBC RBC Hgb Hct MCV MCH MCHC RDW Plt Count MPV Neut % (Auto) Lymph % (Auto) [place] % (Auto) Eos % (Auto) Baso % (Auto) Neut # (Auto) Lymph # (Auto) [place] # (Auto) Eos # (Auto) Baso # (Auto) Nucleated RBC % (a uto) Nucleated RBCs # D-Dimer 0.29 Sodium Potassium Chloride Carbon Dioxide Anion Gap BUN Creatinine GFR Calculation Glucose Calculated Osmolal ity Calcium Total Bilirubin AST ALT Alkaline Phosphata se Total Protein Albumin Globulin Urine Color [place] Urine Appearance Sl cloudy A Urine pH 5 Ur Specific [place] 1.025 Urine Protein 1+ H Urine Glucose (UA) 1+ Urine Ketones 2+ H Urine Blood 3+ H Urine Nitrate Negative Urine Bilirubin Neg Urine Urobilinogen Norm Ur Leukocyte [place] ase Trace H Urine RBC Too numerous to c nt H Urine WBC 25-40 H Ur Squamous Epith Cells 0-4 H Amorphous Sediment Not Reportable Urine Bacteria 2+ H Nasal/Oral COVID-1 9 PCR Pending 08/06/20 08/06/20 21:00 21:00 WBC 17.9 H RBC 5.38 H Hgb 15.6 Hct 47.1 MCV 87.5 MCH 29.0 MCHC 33.1 RDW 14.9 Plt Count 467 H MPV 9.6 Neut % (Auto) 83.9 Lymph % (Auto) 11.6 [place] % (Auto) 3.4 Eos % (Auto) 0.0 Baso % (Auto) 0.6 Neut # (Auto) 15.06 H Lymph # (Auto) 2.1 [place] # (Auto) 0.6 Eos # (Auto) 0.0 Baso # (Auto) 0.1 Nucleated RBC % (a uto) 0 Nucleated RBCs # 0.0 D-Dimer Sodium 142 Potassium 3.8 Chloride 103 Carbon Dioxide 21 L Anion Gap 21.8 H BUN 22 H Creatinine 1.1 GFR Calculation 70.3 L Glucose 191 H Calculated Osmolal ity 302 H Calcium 10.2 Total Bilirubin 0.6 AST 23 ALT 27 Alkaline Phosphata se 80 Total Protein 8.0 Albumin 4.7 Globulin 3.3 Urine Color Urine Appearance Urine pH Ur Specific [place] Urine Protein Urine Glucose (UA) Urine Ketones Urine Blood Urine Nitrate Urine Bilirubin Urine Urobilinogen Ur Leukocyte [place] Urine RBC Urine WBC Ur Squamous Epith Cells Amorphous Sediment Urine Bacteria Nasal/Oral COVID-1 9 PCR Vitals: Last Vital Signs Temp 98.1 F 08/07/20 13:45 Pulse 100 08/07/20 13:45 Resp 22 H 08/07/20 13:45 BP 134/96 08/07/20 13:45 Pulse Ox 96 08/07/20 13:45 Discharge Plan Discharge Patient Disposition: Home Condition: Stable Prescriptions: New Percocet 5-325 mg tablet 1 tab PO Q6H Qty: 12 RF: 0 Continued tamsulosin 0.4 mg Capsule 0.4 mg PO DAILY RF: 0 Discontinued hydrocodone-acetaminophen 5-325 mg Tablet 1 tab PO Q6H PRN (Reason: Pain) RF: 0 Discharge Orders: Discharge Order (Routine); Ordered 08/07/20 Ordered By: Alfredo Paz Referrals: Mati Bradley [Primary Care Provider] - 08/14/20 10:00 am Alfredo Paz MD [Physician] - 1 week ( Early next week with KUB first. Possible cystoscopy stent removal GO TO [facility] [place]RA THEN TO DR HONG OFFICE FOR APPOINTMENT 7 00 AM AUGUST 17) Discharge Diet: Usual diet Discharge Activity: Increase activity as tolerated Patient Instructions: Oxycodone/Acetaminophen (By mouth), Cystoscopy (DC), Ureteral Stent Placement (DC) Activity Restrictions/Additional Instructions: 1. The stone appeared to break up well. 2. A left ureteral stent was left indwelling at the completion of the procedure which should help facilitate passage of the stone fragments and avoid any recurrent obstruction 3. We will plan on taking the stent out in my office next week after obtaining an x-ray at the hospital first. 4. The stent can cause urgency, frequency, blood in the urine, and flank pain with voiding. These are all normal and expected. Discharge Attestations Time Spent in Discharge Care*: less than 30 min Quality Metrics Clinical Quality Measures During this hospital stay, did patient experience: None Coding Level of Care Code Acute Metalworking Specialist for Chg Fwd Exam Expanded Problem Focused Diagnoses Renal and ureteric calculus N20.2 Renal colic on left side N23
--- NOTE | 2020-08-07 13:58 | SUR.PHASEI ---
1347 PATIENT TRANSPORTED FROM PACU TO MED SURG. PATIENT DENIES PAIN. TOLERATING ICE CHIPS. PATIENT AMBULATORY FROM [facility] TO BED ON ARRIVAL TO MED SURG WITH STEADY GAIT.
[2020-08-08 08:06] LABS: Coronavirus Lab Test PTC Negative
== END 2020-08-07 16:00 | disposition home or self-care (01) ==
LOC: ER 23:54 → MEDSURG 08-07 06:43
PROVIDERS: Emergency Medicine; Admitting Provider Urology; Emergency Provider Nurse Practitioner Family; PCP Physician Assistant Medical; Visit Provider Urology
PROC: 0TJB8ZZ Inspection of Bladder, Via Natural or Artificial Opening Endoscopic (ICD-10-PCS; CPT 52000; principal; 2020-08-07 12:00)
PROC: 0TJ98ZZ Inspection of Ureter, Via Natural or Artificial Opening Endoscopic (ICD-10-PCS; CPT 52351; 2020-08-07 12:00)
PROC: (CPT 50590; 2020-08-07 12:00)
PROC: (CPT 50605; 2020-08-07 12:00)
DX: N20.2 Calculus of kidney with calculus of ureter (principal); N23 Unspecified renal colic; K21.9 Gastro-esophageal reflux disease without esophagitis
CPT/HCPCS: 50590; 52332; 12345; 74018; 74176; 80053; 81001; 85025; 85378; 87086; 87635; 90471; 90686; 96361; 96365; 96375; 96376; 99283; 99285; C2625; G0378; J0696; J1170; J2270; J2370; J2405; J2704; J2710; J3010; J3490; J7040

== ENCOUNTER 2020-08-17 06:52 | Outpatient (CLI) | payer BC, SELFPAY ==
--- NOTE | 2020-08-17 07:00 | XR_ITS ---
WS: [id number] KUB, 08/17/2020 Clinical Data: RENAL AND URETERAL CALCULUS Comparison: KUB, 08/06/2020. Findings: No abnormal intraabdominal masses are seen. There is no dilatated small bowel or evidence of obstruct ion. A left ureteral stent has been inserted. There are calcifications overlying both kidneys. There is a small wire overlying the left ilium unchanged. XR/XR KUB [id number] Impression: 1. Insertion of left ureteral stent. 2. Bilateral renal calcifications.
== END 2020-08-17 06:53 | disposition home or self-care (01) ==
LOC: RAD 06:55
PROVIDERS: PCP Physician Assistant Medical; Visit Provider Urology
DX: N20.2 Calculus of kidney with calculus of ureter (principal); Z96.0 Presence of urogenital implants
CPT/HCPCS: 74018; 82365; 88300

== ENCOUNTER 2020-10-04 07:23 | Outpatient (CLI) | payer BC, SELFPAY ==
--- NOTE | 2020-10-04 07:25 | XR_ITS ---
WS: [id number] Exam: XR KUB [id number] Date/Time of Exam: 10/04/2020 7:40 AM Reason For Exam: STONE Comparison 08/17/2020. Previously noted left ureteral stent is been removed. Small calcification superimpose both kidneys ar e most likely renal stones. No bowel obstruction or free air. Visualized organ margins are intact. A linear opaque density superimposes the left iliac bone. Significance is undetermined. XR/XR KUB [id number] IMPRESSION: 1. Left ureteral stent is been removed since prior study. 2. Small calcification superimpose both renal silhouettes and apparently repres ent renal stones. 3. No acute abdominal process.
== END 2020-10-04 07:24 | disposition home or self-care (01) ==
LOC: RAD 07:25
PROVIDERS: PCP Physician Assistant Medical; Visit Provider Urology
DX: N20.2 Calculus of kidney with calculus of ureter (principal); Z96.0 Presence of urogenital implants
CPT/HCPCS: 74018; 81003

== ENCOUNTER 2021-01-02 06:57 | Outpatient (CLI) | payer BC, SELFPAY ==
--- NOTE | 2021-01-02 07:00 | XR_ITS ---
WS: [id number] ABDOMEN: SUPINE FILM HISTORY: Stones COMPARISON: 10/04/2020 Normal bowel gas pattern. Radiopaque density projects over the LEFT ilium is unchanged. Right kidney: 6.8 mm calcification over the mid kidney. No change. Left kidney: Tiny calcifications each measuring 3 mm over the mid LEFT kidney are unchanged. XR/XR KUB [id number] IMPRESSION: Bilateral nephrolithiasis, unchanged.
== END 2021-01-02 06:58 | disposition home or self-care (01) ==
LOC: RAD 07:00
PROVIDERS: PCP Physician Assistant Medical; Visit Provider Urology
DX: N20.0 Calculus of kidney (principal)
CPT/HCPCS: 74018; 81003

== ENCOUNTER 2021-07-05 07:41 | Outpatient (CLI) | payer BC, SELFPAY ==
--- NOTE | 2021-07-05 07:45 | XR_ITS ---
WS: [id number] Exam: XR KUB [id number] Date/Time of Exam: 07/05/2021 7:55 AM Reason For Exam: RENAL AND URETERIC CALCULUS Comparison 01/02/2021. Small calcification superimpose both kidneys most likely renal calculi. No bowel obstruction or free air. No sign of organ enlargement. A metallic segment of wire superimposes the left iliac bone and ma y represent a foreign body. Mild levoscoliosis of the lumbar spine that could be positional. XR/XR KUB [id number] IMPRESSION: 1. Small calcification superimposing both renal silhouette suggesting bilateral renal lithiasis. 2. No acute abdominal process.
== END 2021-07-05 07:42 | disposition home or self-care (01) ==
LOC: RAD 07:44
PROVIDERS: PCP Physician Assistant Medical; Visit Provider Urology
DX: N20.2 Calculus of kidney with calculus of ureter (principal)
CPT/HCPCS: 74018; 81003

== ENCOUNTER 2022-07-11 08:47 | Outpatient (CLI) | payer BC, SELFPAY ==
--- NOTE | 2022-07-11 08:57 | XR_ITS ---
WS: [id number] XR KUB [id number] REASON FOR EXAM: Renal Colic FINDINGS: Bilateral intrarenal calculi unchanged compared to 07/05/2021. No ureteral or bladder calculi are identified. No other significant abnormality of the abdomen or pelvis. XR/XR KUB [id number] IMPRESSION: Stable bilateral intrarenal calculi.
== END 2022-07-11 08:48 | disposition home or self-care (01) ==
LOC: RAD 08:50
PROVIDERS: PCP Nurse Practitioner Family; Visit Provider Urology
DX: N20.0 Calculus of kidney (principal); N23 Unspecified renal colic
CPT/HCPCS: 74018; 81003

== ENCOUNTER 2023-07-25 15:42 | Emergency (ER) | payer BC, SELFPAY ==
[2023-07-25 15:50] VITALS: BMI 27.3
--- NOTE | 2023-07-25 16:08 | XRR_ITS ---
PROCEDURE INFORMATION: Exam: XR Left Shoulder Exam date and time: 07/25/2023 4:17 PM Age: 57 years old Clinical indication: Injury or trauma; Other: Hit by cow; Blunt trauma (contusions or hematomas); Shoulder; Left; Additional info: Dislocation, injury with suspected anterior dislocation TECHNIQUE: Imaging protocol: Radiologic exam of the left shoulder. Views: 3 views. Other technique: AP internal and neutral rotation views, and a scapular Y view of the left shoulder. COMPARISON: No relevant prior studies available. FINDINGS: Bones/joints: The clavicle is 12 mm cranial to the acromion. No bony fracture identified. Normal glenohumeral joint alignment. No proximal humeral or scapular fracture as visualized. Soft tissues: Periclavicular swelling. XR/XR shoulder LT min 2V* [id number] IMPRESSION: Type 3 acromioclavicular joint separation.
--- NOTE | 2023-07-25 16:15 | ED_ITS ---
HPI - Extremity Problem General: Chief complaint: Extremity Injury, Upper Stated complaint: left shoulder pain post injury Time Seen by Provider: 07/25/23 15:44 Source: patient Mode of arrival: EMS Limitations: no limitations History of Present Illness: Patient presents emergency department today accompanied by family and brought by EMS for evaluation treatment of left shoulder pain. 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 Reports landing on his left shoulder but denies hitting his head. He states when he got up he felt a little sore in his shoulder but when he reached up and touched it, he felt a bump. He is denying neck pain, rib pain, elbow pain, tingling or numbness into the left hand. Review of Systems General: Reports: 10 or more systems reviewed and unremarkable except in HPI and below PFSH ED PFSH: Medical History Renal and ureteric calculus 5 mm left UPJ stone with high-grade obstruction and severe symptomatology. Admitted due to poor pain control 08/07/2020. ESWL with stent placement with excellent fragmentation. Untreated LLP and RLP stones in addition. Surgical History H/O splenectomy Family History Father , at age 74 COPD (chronic obstructive pulmonary disease) Mother Diabetes Hyperlipidemia Social History Smoking and tobacco/nicotine status: never used tobacco/nicotine Alcohol intake: never Marital status: Current occupational status: employed Physical Exam Const: COMMON NORMALS: no acute distress, patient oriented x3 and alert OTHER: Patient is pleasant, social. Answers his own history clearly. HENMT: COMMON NORMALS: normocephalic, atraumatic and hearing grossly normal bilaterally HEAD & SCALP: normocephalic and atraumatic OTHER: No signs of facial abrasions, hematomas, or traumas. No signs of epistaxis. Eye: COMMON NORMALS: Equal, round and reactive pupils present, EOMs intact bilaterally and conjunctivae normal CONJUNCTIVA: Yes conjunctivae normal PUPIL: Yes Equal, round and reactive pupils present Neck/C-Spine: COMMON NORMALS: full ROM and no JVD Lymph: LYMPHATIC: no lymphadenopathy noted Chest: OTHER: Patient is nontender to palpation to the left anterior, lateral, posterior ribs. Resp: COMMON NORMALS: normal respiratory effort, No retractions and No use of accessory muscles Cardio: COMMON NORMALS: no JVD and regular rate RATE: regular rate Extremity: NARRATIVE EXTREMITY EXAM: Patient's left arm is currently in a makeshift sling. He does have an obvious palpable bump to the anterior left shoulder. He is nontender to the clavicle. Nontender to the mid and distal humerus. No elbow tenderness. Full flexion extension capabilities of the fingers on the left hand with intact presser and shaper knitted goods strength. Neuro: COMMON NORMALS: patient oriented x3 SENSORIUM/ORIENTATION: Yes alert Psych: COMMON NORMALS: mental status grossly normal, Normal thought process present, cooperative and normal affect THOUGHT PROCESS: Normal thought process present Skin: COMMON NORMALS: no rashes or lesions noted and turgor normal GENERAL SKIN EXAM: no rashes or lesions noted and turgor normal Course Vital Signs: Vital signs: Vital Signs Respiratory Rate 18 07/25/23 16:34 MDM - Extremity (Nontraumatic) Medical Decision Making Patient XR is concerning for AC joint separation but no obvious fractures or dislocation. I spoke with Dr Alcala who recommended a shoulder immobilizer and follow up. Discussed with patient his XR findings and ortho recommendation. I sent a referral in for ortho follow up and Dr Walker provided a course of NORCO for pain. Patient and family verbalized understanding and agreement to the treatment plan. Differential Diagnosis Unlikely herpes zoster, gout, cellulitis, superficial thrombophlebitis or deep venous thrombosis of upper extremity Lab Data Radiology Impressions Shoulder X-Ray 07/25/23 16:08 IMPRESSION: Type 3 acromioclavicular joint separation. All radiology interpretation(s) finalized by discharge Discharge Plan Discharge Patient Disposition: Home Clinical Impression: Acromioclavicular joint separation Condition: Stable Prescriptions: No Action montelukast [Singulair] 10 mg tablet 10 mg PO QAM multivitamin Tablet 1 tab PO QAM omeprazole 20 mg capsule,delayed release(DR/EC) 20 mg PO QAM fluticasone propionate 50 mcg/actuation spray,suspension 2 spray INTRANASAL DAILY Discharge Orders: Discharge ED (Routine); Ordered 07/25/23 Ordered By: Leanne Tse Referrals: Lexii Bailey [Primary Care Provider] - Discharge Diet: Usual diet Discharge Activity: Limit activity as instructed Patient Instructions: Acromioclavicular Separation (ED) Activity Restrictions/Additional Instructions: X-ray today shows separation of your AC joint. I did speak with the orthopedic doctor on-call today who recommended putting you into a shoulder immobilizer. You need to wear this immobilizer at all times. We are also providing you medication to help with pain. We have placed a referral for follow-up with orthopedics on your behalf and they should be calling you to set up a follow-up appointment. You can apply ice to the joint for 15 to 20 minutes, multiple times throughout the day. Watch for any signs of swelling into the hand, tingling or numbness, or weakness of the fingers. Stand Alone Forms: Work/School Release Coding Level of Care Code ED Church Warden for Cezar Arteaga
[2023-07-25 16:34] VITALS: RESP 18
[2023-07-25] MEDS: morphine 4 mg/mL SDV 1 mL IVP (16:34)
[2023-07-25] MEDS: metoclopramide 5 mg/mL SDV 2 mL 10 MG IVP (16:34)
--- NOTE | 2023-07-25 17:31 | DCPLANNER ---
Referral was sent to ortho clinic on 07/25/23 at 1995. Clinic to contact patient.
[2023-07-25 18:18] VITALS: BP 109/71; PULSE 76; RESP 16; O2SAT 97
[2023-07-25 18:20] VITALS: BP 109/71; PULSE 76; RESP 16; O2SAT 97
== END 2023-07-25 18:38 | disposition home or self-care (01) ==
PROVIDERS: Emergency Provider Physician Assistant; PCP Nurse Practitioner Family
DX: S43.102A Unspecified dislocation of left acromioclavicular joint, initial encounter (principal); W55.22XA Struck by cow, initial encounter
CPT/HCPCS: 29240; 73030; 99284; J2270; J2765